=== PATIENT | female | born 1990 | race American Indian/Alaskan Native ===

== ENCOUNTER 2018-06-10 15:43 | Emergency (ER) | payer SELFPAY ==
[2018-06-10 17:13] LABS: HCG Qualitative,Urine Negative (Negative)
[2018-06-10 17:23] LABS: Bilirubin,Urine NEG (Negative); Blood,Urine MOD (Negative); Color,Urine Yellow (Yellow); Mucus,Urine FEW /HPF; Protein,Urine <15 mg/dL mg/dL (Negative); Urobilinogen,Urine < 2.0 mg/dL (<2.0)
--- NOTE | 2018-06-10 17:23 | Emergency Department Report ---
ED Female HPI - General Chief complaint: Urogenital-Female Stated complaint: VAGINAL ITCHING Time Seen by Provider: 06/10/18 16:26 Source: patient Mode of arrival: Ambulatory Limitations: No Limitations - History of Present Illness Initial comments: 27-year-old female past medical history none presents with complaint of 3 weeks of vaginal irritation. Patient denies dysuria. Last mentioned. Started 2017. Patient denies fevers chills nausea vomiting flank pain or increased urinary frequency or dysuria. MD Complaint: vaginal discharge Onset/Timin -: week(s) Are you Now?: No Last Menstrual Period: 06/08/18 EDC: 03/15/19 Associated Symptoms: vaginal discharge - Related Data Previous Rx's Medication Instructions Recorded Last Taken Type metroNIDAZOLE [Metronidazole] 500 mg PO BID #14 tablet 06/10/18 Unknown Rx Allergies Allergy/AdvReac Type Severity Reaction Status Date / Time No Known Allergies Allergy Unverified 06/10/18 15:51 ED Review of Systems ROS: Stated complaint: VAGINAL ITCHING Other details as noted in HPI Constitutional: denies: chills, fever Eyes: denies: eye pain, eye discharge, vision change ENT: denies: ear pain, throat pain Respiratory: denies: cough, shortness of breath, wheezing Cardiovascular: denies: chest pain, palpitations Endocrine: no symptoms reported Gastrointestinal: denies: abdominal pain, nausea, diarrhea Genitourinary: denies: urgency, dysuria, discharge Musculoskeletal: denies: back pain, joint swelling, arthralgia Skin: denies: rash, lesions Neurological: denies: headache, weakness, paresthesias Psychiatric: denies: anxiety, depression Hematological/Lymphatic: denies: easy bleeding, easy bruising ED Past Medical Hx - Past Medical History Previous Medical History?: No - Surgical History Past Surgical History?: Yes Additional Surgical History: x 3 - Social History Smoking Status: Never Smoker Substance Use Type: None - Medications Home Medications: Home Medications Medication Instructions Recorded Confirmed Last Taken Type metroNIDAZOLE [Metronidazole] 500 mg PO BID #14 tablet 06/10/18 Unknown Rx ED Physical Exam - General Limitations: No Limitations General appearance: alert, in no apparent distress - Head Head exam: Present: atraumatic, normocephalic - Eye Eye exam: Present: normal appearance, PERRL, EOMI - ENT ENT exam: Present: mucous membranes moist - Neck Neck exam: Present: normal inspection - Respiratory Respiratory exam: Present: normal lung sounds bilaterally. Absent: respiratory distress - Cardiovascular Cardiovascular Exam: Present: regular rate, normal rhythm. Absent: systolic murmur, diastolic murmur, rubs, gallop - GI/Abdominal GI/Abdominal exam: Present: soft, normal bowel sounds - Speculum exam: Present: vaginal discharge, vaginal bleeding - Extremities Exam Extremities exam: Present: normal inspection - Back Exam Back exam: Present: normal inspection - Neurological Exam Neurological exam: Present: alert, oriented X3, CN II-XII intact, normal gait - Expanded Neurological Exam Expanded Patient oriented to: Present: person, place, time - Psychiatric Psychiatric exam: Present: normal affect, normal mood - Skin Skin exam: Present: warm, dry, intact, normal color. Absent: rash ED Course Vital Signs 06/10/18 15:51 Temperature 98.5 F Pulse Rate 91 H Respiratory 18 Rate Blood Pressure 128/77 O2 Sat by Pulse 99 Oximetry ED Medical Decision Making - Medical Decision Making A/P: Bacterial vaginosis 1-metronidazole course 2-GC culture sent, UA is unremarkable. Patient does not complain of dysuria or increased urinary frequency 3-follow-up with [facility] Critical care attestation.: If time is entered above; I have spent that time in minutes in the direct care of this critically ill patient, excluding procedure time. ED Disposition Clinical Impression: Bacterial vaginosis Disposition: DC-01 TO HOME OR SELFCARE Is pt being admited?: No Does the pt Need Aspirin: No Condition: Stable Instructions: Bacterial Vaginosis (ED) Prescriptions: metroNIDAZOLE [Metronidazole] 500 mg PO BID #14 tablet Referrals: PRIMARY CARE [Primary Care Provider] - 3-5 Days [facility] [Provider Group] - 3-5 Days [facility] [Provider Group] - 3-5 Days Forms: STI Treatment and Prevention Time of Disposition: 18:15
[2018-06-10 18:27] VITALS: BP 126/68
== END 2018-06-10 18:25 | disposition home or self-care (01) ==
LOC: ED 15:43
DX: N76.0 Acute vaginitis (principal)
CPT/HCPCS: 81001; 81025; 87210; 87591